=== PATIENT | male | born 1955 | race Caucasian/White ===

== ENCOUNTER → 2016-09-02 | Outpatient (CLI) | payer BC ==
[~2016-09-02] MED LIST: BACTRIM DS DPS1 TAB PO; ECOTRIN81 MG PO; GEMFIBROZIL600 MG PO; LIPITOR DPS10 MG PO; NORCO 5-325 TA1 EACH PO; OSTEO BI-FLEX1 EAC1 PO; PYRIDIUM200 MG PO; THERA1 EACH PO
== END | disposition home or self-care (01) ==
LOC: RAD.S 13:15
DX: N20.0 Calculus of kidney (principal)